=== PATIENT | female | born 1950 | race Caucasian/White ===

== ENCOUNTER 2016-09-08 10:19 | Outpatient (CLI) | payer MEDICARE ==
[2016-09-08 10:55] LABS: #Basophils 0.1 thou/uL (0.0-0.2); #Eosinphils 0.2 thou/uL (0.0-0.7); #Lymphocytes 1.5 thou/uL (1.20-3.40); #Monocytes 0.5 thou/uL (0.11-0.59); #Neutrophils 2.6 thou/uL (1.40-6.50); %Basophils 1.5 % (0.0-1.0); %Eosinophils 3.9 % (0.0-10.0); %Lymphocytes 30.5 % (21.0-51.0); %Monocytes 9.8 % (0.0-10.0); %Neutrophils 54.3 % (42.0-75.0); Hemoglobin 14.9 g/dL (12.0-16.0); Mean Corpuscular HGB CONC 34.7 g/dL (32.0-36.0); Mean Corpuscular Hemoglobin 31.3 pg (27.0-31.0); Mean Corpuscular Volume 90.3 fl (81.0-99.0); Mean Platelet Volume 9.6 fL (7.4-10.4); Platelet Count 204 thou/uL (130-400); RBC Distribution Width 12.3 % (11.5-14.5); Red Blood Cell (RBC) Count 4.74 mill/uL (4.20-5.40); White Blood Cell (WBC) Count 4.8 thou/uL (4.8-10.8)
[2016-09-08 11:13] LABS: ALT (SGPT) 32 U/L (0-55); AST (SGOT) 26 U/L (5-34); Albumin 4.5 g/dL (3.4-4.8); Alkaline Phosphatase 88 U/L (40-150); Anion Gap 15 mmol/L (10-20); BUN (Urea Nitrogen) 15 mg/dL (9.8-20.1); Bilirubin, Total 0.5 mg/dL (0.2-1.2); Calc. Creatinine Clearance 0 mL/min (70-130); Calcium 9.6 mg/dL (7.8-10.44); Carbon Dioxide 30 mmol/L (23-31); Cardiac Risk 2.9 (Less than 4.5); Chloride 97 mmol/L (98-107); Cholesterol 175 mg/dL (< 200 Desired); Estimated GFR-MDRD 63; Globulin 2.9 g/dL (2.4-3.5); Glucose 140 mg/dL (80-115); HDL Cholesterol 61 mg/dL (>60 Neg Risk); LDL Cholesterol, Calculated 95 mg/dL; Potassium 4.3 mmol/L (3.5-5.1); Protein, Total 7.4 g/dL (5.8-8.1); Sodium 138 mmol/L (136-145); Triglycerides 96 mg/dL (Less than 150)
== END 2016-09-08 10:20 | disposition home or self-care (01) ==
LOC: MADLABBHPM 10:19
PROVIDERS: ATTEND Family Medicine
DX: I10 Essential (primary) hypertension (principal)
CPT/HCPCS: 36415; 80053; 80061; 84443; 85025